=== PATIENT | male | born 2000 ===

== ENCOUNTER 2023-02-28 21:25 | Emergency (ER) | payer BC, SELFPAY ==
[2023-02-28 21:30] VITALS: BP 177/89; PULSE 137; PULSE 156; RESP 18; TEMP 36.9; O2SAT 97; O2SAT 99; BMI 36.0
--- NOTE | 2023-02-28 21:40 | ECG_ITS ---
Test Reason : OD Blood Pressure : / mmHG Vent. Rate : 136 BPM Atrial Rate : 136 BPM P-R Int : 152 ms QRS Dur : 084 ms QT Int : 286 ms P-R-T Axes : 055 033 065 degrees QTc Int : 430 ms Sinus tachycardia Nonspecific ST abnormality Abnormal ECG No previous ECGs available Referred By: Humberto Bermudez Electronically Signed By:ASHVIN MCFARLANE
--- NOTE | 2023-02-28 21:40 | MHC.EDTECH ---
Patient came in by ambulance,was changed into hospital attire,security at bedside and belongings were taken to [facility]. Patient placed on hospital monitor and vitals were taken. RN at bedside
--- NOTE | 2023-02-28 21:55 | MHC.EDTECH ---
EKG taken and belonging list completed and copy in chart.
[2023-02-28] MEDS: 0.9 % Sodium Chloride 1,000 ML 999 ML IV (22:19)
[2023-02-28] MEDS: LORazepam 2 MG/ML VIAL IVPUSH (22:21)
--- NOTE | 2023-02-28 22:40 | PC.NURSE ---
pt now resting comfortably after administered medications.
[2023-02-28 23:16] VITALS: BP 116/43; PULSE 114; RESP 16; O2SAT 98
--- NOTE | 2023-02-28 23:34 | ED_ITS ---
HPI - Overdose General Chief Complaint: Overdose Stated Complaint: ams after taking thc, per ems Time Seen by Provider: 02/28/23 21:34 Source: family and EMS Mode of arrival: EMS Limitations: no limitations History of Present Illness HPI Narrative: Patient accidentally took 150 mg of THC bar and had bong also paranoid on arrival with palpitation and anxious history of THC use in the past occasionally only no other no alcohol use Related Data Allergies Allergy/AdvReac Type Severity Reaction Status Date / Time No Known Allergies Allergy Verified 02/28/23 21:39 Review of Systems Review of Systems: Yes all other systems are reviewed and are negative [facility] Social History Social History Alcohol intake: current Alcohol intake frequency: holidays/special occasions only Smoked in Last 30 Days: No Use of substances other than those prescribed or required for medical reasons: Yes Substance Use Type: Marijuana Substance Use Frequency: Monthly Last Used Substance: Just Prior to Admission Advance Directives: No Advance Directives Information Provided: No Physical Exam Vital Signs: Vital Signs: Last Vital Signs Temp 98.4 F 02/28/23 21:30 Pulse 100 03/01/23 00:00 Resp 16 03/01/23 00:00 BP 114/48 L 03/01/23 00:00 Pulse Ox 99 03/01/23 00:00 O2 Del Method Room Air 02/28/23 23:16 BMI result Body Mass Index 36.0 Medications Administered Discontinued Medications Generic Name Dose Route Start Last Admin Trade Name Freq PRN Reason Stop Dose Admin Sodium Chloride 1,000 mls @ 999 mls/hr 02/28/23 21:39 02/28/23 23:16 Ns IV 02/28/23 22:39 Infused .Q1H1M ONE Infusion Lorazepam 2 mg 02/28/23 22:17 02/28/23 22:21 Lorazepam 2 Mg/Ml Vial IVPUSH 02/28/23 22:18 2 mg ONCE ONE Administration Medical Decision Making Medical Decision Making MDM Narrative: Patient with accident THC overdose feeling much better after Ativan and fluids h eart rate improved discharge patient home with family Discharge Plan Discharge Clinical Impression: Accidental marijuana overdose Patient Disposition: Home, Self-Care Instructions: Cannabis Abuse (ED) Additional Instructions: Do not overdose with THC/cannabis Drink plenty of fluids
[2023-03-01] VITALS: BP 114/48; PULSE 100; RESP 16; O2SAT 99
--- NOTE | 2023-03-01 00:21 | PC.NURSE ---
Woke pt from sleep with minimal effort. Pt lucid, answering questions appropriately. Plan for DC to home with josé miguel present.
--- NOTE | 2024-01-26 01:03 | ED.OVERDOSE ---
HPI - Overdose General Chief Complaint: Overdose Stated Complaint: ams after taking thc, per ems Time Seen by Provider: 02/28/23 21:34 Source: family and EMS Mode of arrival: EMS Limitations: no limitations History of Present Illness ED Provider: ace FELIZ Narrative: Patient accidentally took 150 mg of THC bar and had bong also paranoid on arrival with palpitation and anxious history of THC use in the past occasionally only no other no alcohol use Related Data Allergies Allergy/AdvReac Type Severity Reaction Status Date / Time No Known Allergies Allergy Verified 02/28/23 21:39 Review of Systems Review of Systems: Yes all other systems are reviewed and are negative [facility] Social History Social History Alcohol intake: current Alcohol intake frequency: holidays/special occasions only Smoked in Last 30 Days: No Use of substances other than those prescribed or required for medical reasons: Yes Substance Use Type: Marijuana Substance Use Frequency: Monthly Last Used Substance: Just Prior to Admission Advance Directives: No Advance Directives Information Provided: No Physical Exam Vital Signs: Vital Signs: Last Vital Signs Temp 98.4 F 02/28/23 21:30 Pulse 100 03/01/23 00:00 Resp 16 03/01/23 00:00 BP 114/48 L 03/01/23 00:00 Pulse Ox 99 03/01/23 00:00 O2 Del Method Room Air 02/28/23 23:16 BMI result Body Mass Index 36.0 Appearance: Alert. Oriented X3. No acute distress. Anxious and paranoid Eyes: PERRLA, No Nystagmus ENT: Pharynx normal. Oral Mucosa moist Neck: Normal inspection. Neck supple. CVS: Normal heart rate and rhythm. Pulses normal. Respiratory: No respiratory distress. Equal air entry bilateral, no wheezing/rales/rhonchi Abdomen: Soft and nontender. Bowel sounds are present, no mass palpable, no CVA tenderness Skin: Skin warm and dry. Normal skin color. Normal skin turgor. Extremities: No lower extremity edema. No calf tenderness Neuro: Oriented X 3. No motor deficit. No sensory deficit.No cerebellar signs , cranial nerves II-XII intact Medications Administered Discontinued Medications Generic Name Dose Route Start Last Admin Trade Name Freq PRN Reason Stop Dose Admin Sodium Chloride 1,000 mls @ 999 mls/hr 02/28/23 21:39 02/28/23 23:16 Ns IV 02/28/23 22:39 Infused .Q1H1M ONE Infusion Lorazepam 2 mg 02/28/23 22:17 02/28/23 22:21 Lorazepam 2 Mg/Ml Vial IVPUSH 02/28/23 22:18 2 mg ONCE ONE Administration Discharge Plan Discharge Clinical Impression: Accidental marijuana overdose Patient Disposition: Home, Self-Care Instructions: Cannabis Abuse (ED) Additional Instructions: Do not overdose with THC/cannabis Drink plenty of fluids Interventions: ED Discharge Assessment Last Done: 03/01/23 00:56 Discharge Date/Time: 03/01/23 00:56 Print Language: [place]
== END 2023-03-01 00:56 | disposition home or self-care (01) ==
PROVIDERS: Emergency Provider Internal Medicine
DX: F41.9 Anxiety disorder, unspecified (principal); R00.2 Palpitations; T40.711A Poisoning by cannabis, accidental (unintentional), initial encounter; Y92.9 Unspecified place or not applicable
CPT/HCPCS: 93005; 96361; 96374; 99284; 99285; J2060